=== PATIENT | female | born 1940 | race Caucasian/White ===

== ENCOUNTER → 2018-09-19 | Outpatient (CLI) | payer OTHER ==
[~2018-09-19] MED LIST: ASCO500; ASCO500 PO; ASPI325 PO; ASPI325EC; CITRATE OF MAG296 ML PO; Coenzyme Q10200 M2; DENAVIR; ERGO400 PO; Estrace Vagin42.5 GM VAG; FISH OIL 1,0001 EAC1 PO; HEARTBURN RELI150 MG PO; L-LYSINE1000 MG; L-THEANINE25 GM; LIOT5; LIOT5 PO; LOSA50 PO; METHYLCOBALAMIN; Multiple Vitam1 EAC1; Multivitamin1 EAC1 PO; NAPR220; Nitrostat0.4 MG; OMEG1CAP30; Omeprazole20 M1 PO; PROBIOTIC1 EAC1; Protopic100 G1; Simvastatin20 MG PO
[2018-09-20 11:24] LABS: G. vaginalis (DNA Probe) Negative (NEGATIVE); T. vaginalis (DNA Probe) Negative (NEGATIVE)
[2018-09-20 11:25] LABS: Candida species (DNA Probe) Negative (NEGATIVE)
== END | disposition home or self-care (01) ==
LOC: LAB 12:01 → LAB SHORT 12:01
PROVIDERS: Obstetrics & Gynecology
DX: N76.0 Acute vaginitis (principal)
CPT/HCPCS: 87480; 87510; 87660

== ENCOUNTER → 2018-12-28 | Outpatient (CLI) | payer OTHER ==
[2018-12-28 12:31] LABS: BASOPHILS ABSOLUTE AUTO 0.03 K/mm3 (0.00-0.23); BASOPHILS PERCENT AUTO 0 % (0-2); EOSINOPHILS ABSOLUTE AUTO 0.05 K/mm3 (0.00-0.68); EOSINOPHILS PERCENT AUTO 1 % (0-6); Hematocrit 43.3 % (33.0-51.0); Hemoglobin 14.5 g/dL (11.5-16.0); IMMATURE GRAN ABSOLUTE AUTO 0.02 K/mm3 (0.00-0.10); IMMATURE GRAN PERCENT AUTO 0 % (0-1); LYMPHOCYTES ABSOLUTE AUTO 2.83 K/mm3 (0.84-5.20); LYMPHOCYTES PERCENT AUTO 37 % (21-46); MONOCYTES ABSOLUTE AUTO 0.55 K/mm3 (0.16-1.47); MONOCYTES PERCENT AUTO 7 % (4-13); Mean Corpuscular HGB 31.1 pg (26.0-34.0); Mean Corpuscular HGB Conc 33.5 g/dL (31.5-36.5); Mean Corpuscular Volume 93 fL (80-100); Mean Platelet Volume 10.1 fL (9.1-12.4); NEUTROPHILS ABSOLUTE AUTO 4.13 K/mm3 (1.96-9.15); NEUTROPHILS PERCENT AUTO 54 % (41-73); Platelet Count 240 K/mm3 (150-400); RDW Coefficient Variation 12.6 % (11.7-14.2); RDW Standard Deviation 43.1 fL (35.1-46.3); Red Blood Cell Count 4.66 M/mm3 (3.80-5.20); White Blood Cell Count 7.61 K/mm3 (4.00-11.30)
[2018-12-28 12:42] LABS: Anion Gap 10 mmol/L (6-16); Blood Urea Nitrogen 11 mg/dL (8-24); Bun/Creatinine Ratio 14.3 (12.0-20.0); CO2, Blood 25 mmol/L (21-32); Calcium, Blood 8.5 mg/dL (8.5-10.1); Chloride, Blood 102 mmol/L (98-108); Creatinine, Blood 0.77 mg/dL (0.40-1.00); Glomerular Filtration Rate >60 (60-); Glucose, Blood 85 mg/dL (70-99); Potassium, Blood 3.6 mmol/L (3.5-5.5); Sodium, Blood 137 mmol/L (136-145)
[2018-12-28 12:45] LABS: Troponin I <0.017 ng/mL (0.000-0.040)
== END | disposition home or self-care (01) ==
LOC: LAB SHORT 12:25 → LAB EV 12:25
PROVIDERS: Family Medicine
DX: R07.9 Chest pain, unspecified (principal)
CPT/HCPCS: 80048; 84484; 85025

== ENCOUNTER → 2019-06-20 | Outpatient (CLI) | payer OTHER | END | disposition home or self-care (01) | LOC: LAB 16:30 → LAB SHORT 16:30 | DX: B37.2 Candidiasis of skin and nail (principal) | CPT/HCPCS: 87102 ==

== ENCOUNTER → 2019-11-01 | Outpatient (CLI) | payer OTHER ==
[2019-11-01 14:37] LABS: Candida species (DNA Probe) Negative (NEGATIVE); G. vaginalis (DNA Probe) Negative (NEGATIVE); T. vaginalis (DNA Probe) Negative (NEGATIVE)
== END | disposition home or self-care (01) ==
LOC: LAB SHORT 09:20 → LAB 09:20
PROVIDERS: Obstetrics & Gynecology
DX: N76.0 Acute vaginitis (principal)
CPT/HCPCS: 87480; 87510; 87660

== ENCOUNTER → 2020-03-15 | Outpatient (CLI) | payer OTHER ==
[~2020-03-15] MED LIST changes: +ACYC400 PO; +CBD CREAM; +ERGO400; +FIBER THERAPY625 MG; +FISH OIL 1,2001 EAC7 PO; +LIPOIC ACID25 GM; +MAGCIT300; +MULTI-VITAMIN1 EAC2 PO; +OMEP20ER PO; +Voltaren100 GM
[2020-03-18 07:04] LABS: Stool Occult Bld Immuno 1 Negative (NEGATIVE); Stool Occult Bld Immuno 2 Negative (NEGATIVE)
[2020-03-18 15:11] LABS: FATS, NEUTRAL Normal (.); FATS, TOTAL Normal (.)
== END | disposition home or self-care (01) ==
LOC: LAB 07:00 → LAB SHORT 07:00 → LAB FUT 03-14 10:00
PROVIDERS: Internal Medicine Gastroenterology
DX: R10.84 Generalized abdominal pain (principal); R19.4 Change in bowel habit
CPT/HCPCS: 82705; G0328

== ENCOUNTER → 2020-07-03 | Outpatient (CLI) | payer OTHER ==
[2020-07-03 16:09] LABS: BASOPHILS ABSOLUTE AUTO 0.04 K/mm3 (0.00-0.23); BASOPHILS PERCENT AUTO 1 % (0-2); EOSINOPHILS ABSOLUTE AUTO 0.04 K/mm3 (0.00-0.68); EOSINOPHILS PERCENT AUTO 1 % (0-6); Hematocrit 43.3 % (33.0-51.0); Hemoglobin 14.8 g/dL (11.5-16.0); IMMATURE GRAN ABSOLUTE AUTO 0.02 K/mm3 (0.00-0.10); IMMATURE GRAN PERCENT AUTO 0 % (0-1); LYMPHOCYTES ABSOLUTE AUTO 2.61 K/mm3 (0.84-5.20); LYMPHOCYTES PERCENT AUTO 37 % (21-46); MONOCYTES ABSOLUTE AUTO 0.45 K/mm3 (0.16-1.47); MONOCYTES PERCENT AUTO 6 % (4-13); Mean Corpuscular HGB Conc 34.2 g/dL (31.5-36.5); Mean Corpuscular Volume 94 fL (80-100); Mean Platelet Volume 9.8 fL (9.1-12.4); NEUTROPHILS ABSOLUTE AUTO 3.97 K/mm3 (1.96-9.15); NEUTROPHILS PERCENT AUTO 56 % (41-73); Platelet Count 259 K/mm3 (150-400); RDW Coefficient Variation 12.4 % (11.7-14.2); RDW Standard Deviation 42.6 fL (35.1-46.3); Red Blood Cell Count 4.63 M/mm3 (3.80-5.20); White Blood Cell Count 7.13 K/mm3 (4.00-11.30)
[2020-07-03 16:22] LABS: Alanine Aminotransfer (ALT/SGP 30 U/L (12-78); Albumin, Blood 4.2 g/dL (3.4-5.0); Albumin/Globulin Ratio 1.2 (0.8-1.8); Alk Phos 102 U/L (40-126); Anion Gap 9 mmol/L (6-16); Aspartate Aminotrans (AST/SGOT 23 U/L (12-37); Bilirubin, Total 0.4 mg/dL (0.1-1.0); Blood Urea Nitrogen 14 mg/dL (8-24); Bun/Creatinine Ratio 17.9 (12.0-20.0); CO2, Blood 28 mmol/L (21-32); Calcium, Blood 9.4 mg/dL (8.5-10.1); Chloride, Blood 98 mmol/L (98-108); Creatinine, Blood 0.78 mg/dL (0.40-1.00); Globulin, Blood 3.6 g/dL (2.2-4.0); Glomerular Filtration Rate >60 (60-); Glucose, Blood 87 mg/dL (70-99); Potassium, Blood 3.7 mmol/L (3.5-5.5); Sodium, Blood 135 mmol/L (136-145); Total Protein, Blood 7.8 g/dL (6.4-8.2)
[2020-07-03 16:32] LABS: Troponin I <0.017 ng/mL (0.000-0.040)
== END ==
LOC: LAB EV 16:03 → LAB SHORT 16:03
PROVIDERS: Physician Assistant
DX: E03.9 Hypothyroidism, unspecified (principal); R07.89 Other chest pain
CPT/HCPCS: 80053; 84443; 84484; 85025; 85379

== ENCOUNTER → 2020-10-07 | Outpatient (CLI) | payer OTHER ==
[~2020-10-07] MED LIST changes: +CEFD300 PO; -ERGO400; +GABA100 PO; +OXYB5 PO; +PANT40 PO; +THERA-D2000 UNIT PO
[2020-10-07 12:23] LABS: BASOPHILS ABSOLUTE AUTO 0.02 K/mm3 (0.00-0.23); BASOPHILS PERCENT AUTO 0 % (0-2); EOSINOPHILS ABSOLUTE AUTO 0.03 K/mm3 (0.00-0.68); EOSINOPHILS PERCENT AUTO 1 % (0-6); Hematocrit 45.8 % (33.0-51.0); Hemoglobin 15.3 g/dL (11.5-16.0); IMMATURE GRAN ABSOLUTE AUTO 0.02 K/mm3 (0.00-0.10); IMMATURE GRAN PERCENT AUTO 0 % (0-1); LYMPHOCYTES PERCENT AUTO 39 % (21-46); MONOCYTES ABSOLUTE AUTO 0.39 K/mm3 (0.16-1.47); MONOCYTES PERCENT AUTO 6 % (4-13); Mean Corpuscular HGB 31.6 pg (26.0-34.0); Mean Corpuscular HGB Conc 33.4 g/dL (31.5-36.5); Mean Corpuscular Volume 95 fL (80-100); Mean Platelet Volume 9.5 fL (9.1-12.4); NEUTROPHILS ABSOLUTE AUTO 3.38 K/mm3 (1.96-9.15); NEUTROPHILS PERCENT AUTO 53 % (41-73); Platelet Count 253 K/mm3 (150-400); RDW Coefficient Variation 12.2 % (11.7-14.2); RDW Standard Deviation 42.9 fL (35.1-46.3); Red Blood Cell Count 4.84 M/mm3 (3.80-5.20); White Blood Cell Count 6.34 K/mm3 (4.00-11.30)
[2020-10-07 12:34] LABS: Alanine Aminotransfer (ALT/SGP 33 U/L (12-78); Albumin/Globulin Ratio 1.1 (0.8-1.8); Alk Phos 116 U/L (40-126); Anion Gap 8 mmol/L (6-16); Aspartate Aminotrans (AST/SGOT 23 U/L (12-37); Bilirubin, Total 0.6 mg/dL (0.1-1.0); Blood Urea Nitrogen 9 mg/dL (8-24); Bun/Creatinine Ratio 10.1 (12.0-20.0); CO2, Blood 28 mmol/L (21-32); Calcium, Blood 9.5 mg/dL (8.5-10.1); Chloride, Blood 99 mmol/L (98-108); Creatinine, Blood 0.89 mg/dL (0.40-1.00); Globulin, Blood 3.6 g/dL (2.2-4.0); Glomerular Filtration Rate >60 (60-); Glucose, Blood 98 mg/dL (70-99); Magnesium, Blood 2.4 mg/dL (1.6-2.4); Potassium, Blood 3.8 mmol/L (3.5-5.5); Sodium, Blood 135 mmol/L (136-145); Total Protein, Blood 7.6 g/dL (6.4-8.2)
== END | disposition home or self-care (01) ==
LOC: LAB 12:19 → LAB SHORT 12:19 → PLD 12:19
PROVIDERS: Physician Assistant
DX: F44.89 Other dissociative and conversion disorders (principal); N39.0 Urinary tract infection, site not specified
CPT/HCPCS: 80053; 83735; 85025; 87086

== ENCOUNTER 2020-10-18 12:47 | Observation (INO) | payer OTHER ==
[~2020-10-18] VITALS: Ht 154.9 cm; Wt 47.6 kg
[~2020-10-18 12:47] MED LIST changes: -CEFD300 PO; -GABA100 PO; -OXYB5 PO; -PANT40 PO
[2020-10-18 13:20] LABS: BASOPHILS ABSOLUTE AUTO 0.03 K/mm3 (0.00-0.23); BASOPHILS PERCENT AUTO 0 % (0-2); EOSINOPHILS ABSOLUTE AUTO 0.04 K/mm3 (0.00-0.68); EOSINOPHILS PERCENT AUTO 1 % (0-6); Hematocrit 43.3 % (33.0-51.0); Hemoglobin 14.6 g/dL (11.5-16.0); IMMATURE GRAN ABSOLUTE AUTO 0.02 K/mm3 (0.00-0.10); IMMATURE GRAN PERCENT AUTO 0 % (0-1); LYMPHOCYTES ABSOLUTE AUTO 2.87 K/mm3 (0.84-5.20); LYMPHOCYTES PERCENT AUTO 41 % (21-46); MONOCYTES ABSOLUTE AUTO 0.37 K/mm3 (0.16-1.47); MONOCYTES PERCENT AUTO 5 % (4-13); Mean Corpuscular HGB 31.7 pg (26.0-34.0); Mean Corpuscular HGB Conc 33.7 g/dL (31.5-36.5); Mean Corpuscular Volume 94 fL (80-100); Mean Platelet Volume 9.7 fL (9.1-12.4); NEUTROPHILS ABSOLUTE AUTO 3.69 K/mm3 (1.96-9.15); NEUTROPHILS PERCENT AUTO 53 % (41-73); Platelet Count 243 K/mm3 (150-400); RDW Coefficient Variation 12.1 % (11.7-14.2); RDW Standard Deviation 42.1 fL (35.1-46.3); White Blood Cell Count 7.02 K/mm3 (4.00-11.30)
[2020-10-18] MEDS ORDERED: CEFD300 PO (13:21)
[2020-10-18 13:34] LABS: Alanine Aminotransfer (ALT/SGP 33 U/L (12-78); Albumin, Blood 3.7 g/dL (3.4-5.0); Albumin/Globulin Ratio 1.1 (0.8-1.8); Alk Phos 110 U/L (50-136); Anion Gap 6 mmol/L (6-16); Aspartate Aminotrans (AST/SGOT 21 U/L (12-37); Bilirubin, Total 0.5 mg/dL (0.1-1.0); Blood Urea Nitrogen 11 mg/dL (8-24); Bun/Creatinine Ratio 12.9 (12.0-20.0); CO2, Blood 27 mmol/L (21-32); Chloride, Blood 106 mmol/L (98-108); Creatinine, Blood 0.85 mg/dL (0.40-1.00); Globulin, Blood 3.3 g/dL (2.2-4.0); Glomerular Filtration Rate >60 (60-); Glucose, Blood 99 mg/dL (70-99); International Normalized Ratio 0.93; Potassium, Blood 3.6 mmol/L (3.5-5.5); Sodium, Blood 139 mmol/L (136-145)
[2020-10-18 14:29] LABS: Source, Urine Clean Catch
[2020-10-18 14:32] LABS: Appearance, Urine Clear (Clear); Bilirubin, Urine Neg (Neg); Blood, Urine 1+ (Neg); Color, Urine Yellow (P-Yellow); Glucose Qualitative, Urine Neg (Neg); Ketones, Urine Neg (Neg); Leukocyte Esterase, Urine Neg (Neg); Nitrite, Urine Neg (Neg); Protein, Urine Neg (Neg); Specific Gravity, Urine 1.005 (1.003-1.022); Urobilinogen, Urine NORM (Normal)
[2020-10-18 14:48] LABS: Bacteria Rare /hpf; Squamous Epithelial Cells Few /hpf (Few); White Blood Cells, Urine 0-2 /hpf (0-5)
[2020-10-18] MEDS ORDERED: GABA100 PO (17:56)
--- NOTE | 2020-10-19 04:46 | NUR ---
SHIFT SUMMARY: PT IS ALERT AND ORIENTED WITH VERY MILD EXPRESSIVE APHASIA. PT IS A ONE PERSON ASSIST. PT IS CALM AND COOPERATIVE WITH CARE. PT CALLS APPROPRIATELY. PT REPORTED HEADACHE EARLY IN THE SHIFT, GAVE PRN TYLENOL. PT DENIES NAUSEA, VOMITING, AND SOB. PT SLEPT INTERMITTENTLY THROUGHOUT THE NIGHT. NO ACUTE CHANGES OR COMPLICATIONS THIS SHIFT. BED IN LOW POSITION, CALL LIGHT WITHIN REACH. WILL CONTINUE TO MONITOR.
[2020-10-19 05:15] LABS: BASOPHILS ABSOLUTE AUTO 0.01 K/mm3 (0.00-0.23); BASOPHILS PERCENT AUTO 0 % (0-2); EOSINOPHILS PERCENT AUTO 0 % (0-6); Hematocrit 41.6 % (33.0-51.0); Hemoglobin 14.1 g/dL (11.5-16.0); IMMATURE GRAN ABSOLUTE AUTO 0.03 K/mm3 (0.00-0.10); IMMATURE GRAN PERCENT AUTO 0 % (0-1); LYMPHOCYTES ABSOLUTE AUTO 2.36 K/mm3 (0.84-5.20); LYMPHOCYTES PERCENT AUTO 24 % (21-46); MONOCYTES ABSOLUTE AUTO 0.22 K/mm3 (0.16-1.47); MONOCYTES PERCENT AUTO 2 % (4-13); Mean Corpuscular HGB 31.8 pg (26.0-34.0); Mean Corpuscular HGB Conc 33.9 g/dL (31.5-36.5); Mean Corpuscular Volume 94 fL (80-100); NEUTROPHILS ABSOLUTE AUTO 7.36 K/mm3 (1.96-9.15); NEUTROPHILS PERCENT AUTO 74 % (41-73); Platelet Count 251 K/mm3 (150-400); RDW Coefficient Variation 11.9 % (11.7-14.2); RDW Standard Deviation 41.5 fL (35.1-46.3); Red Blood Cell Count 4.44 M/mm3 (3.80-5.20); White Blood Cell Count 9.98 K/mm3 (4.00-11.30)
[2020-10-19 06:04] LABS: Albumin, Blood 3.3 g/dL (3.4-5.0); Anion Gap 8 mmol/L (6-16); Blood Urea Nitrogen 13 mg/dL (8-24); Bun/Creatinine Ratio 17.5 (12.0-20.0); CO2, Blood 23 mmol/L (21-32); Calcium, Blood 9.1 mg/dL (8.5-10.1); Chloride, Blood 108 mmol/L (98-108); Cholesterol 249 mg/dL (50-200); Creatinine, Blood 0.74 mg/dL (0.40-1.00); Glomerular Filtration Rate >60 (60-); Glucose, Blood 124 mg/dL (70-99); HDL Cholesterol 82 mg/dL (>39); LDL/HDL RATIO 1.9; Low Density Lipoprotein Chol 158 mg/dL (0-110); Phosphorus, Blood 4.1 mg/dL (2.5-4.9); Potassium, Blood 4.1 mmol/L (3.5-5.5); Sodium, Blood 139 mmol/L (136-145); Thyroid Stimulating Hormone 0.607 uIU/mL (0.360-4.800); Triglycerides 47 mg/dL (30-160); Very Low Density Lipoprot Chol 9 mg/dL (6-32)
[2020-10-19] MEDS ORDERED: ASPI325 PO (09:32)
[2020-10-19] MEDS ORDERED: PANT40 PO (09:33)
[2020-10-19] MEDS ORDERED: OXYB5 PO (09:33)
--- NOTE | 2020-10-19 11:59 | NUR ---
PT DISCHARGED FROM THE UNIT. IV REMOVED. DISCHARGE INSTRUCTIONS REVIEWED. MEDICATIONS FAXED TO PHARMACY. PT LEFT UNIT VIA WHEEL CHAIR. DAUGHTER WILL DRIVE HER HOME.
== END 2020-10-19 11:44 | disposition home or self-care (01) ==
LOC: ER 12:47 → MEDS 15:48
PROVIDERS: Physician Assistant; ADMIT Internal Medicine Gastroenterology
DX: R29.818 Other symptoms and signs involving the nervous system (principal); R47.01 Aphasia; H53.8 Other visual disturbances; R47.9 Unspecified speech disturbances; H53.2 Diplopia; I10 Essential (primary) hypertension; G47.9 Sleep disorder, unspecified; I65.23 Occlusion and stenosis of bilateral carotid arteries; Z87.19 Personal history of other diseases of the digestive system; Z88.2 Allergy status to sulfonamides; Z88.8 Allergy status to other drugs, medicaments and biological substances
CPT/HCPCS: 36415; 36416; 70450; 70496; 70498; 80053; 80061; 80069; 81001; 82947; 84443; 85025; 85610; 85730; 93005; 93010; 96374; 96375; 99285-25; A9270; G0378; J1200; J2930; Q9967

== ENCOUNTER → 2021-01-09 | Outpatient (CLI) | payer OTHER ==
[~2021-01-09] MED LIST changes: +CEFD300 PO; +GABA100 PO; +OXYB5 PO; +PANT40 PO
[2021-01-10 09:00] LABS: Candida species (DNA Probe) Negative (NEGATIVE); G. vaginalis (DNA Probe) Negative (NEGATIVE); T. vaginalis (DNA Probe) Negative (NEGATIVE)
== END | disposition home or self-care (01) ==
LOC: LAB SHORT 10:35 → LAB 10:35
PROVIDERS: Family Medicine
DX: N95.2 Postmenopausal atrophic vaginitis (principal)
CPT/HCPCS: 87480; 87510; 87660

== ENCOUNTER → 2021-09-29 | Outpatient (CLI) | payer OTHER | END | disposition home or self-care (01) | LOC: LAB SHORT 11:22 | DX: D04.72 Carcinoma in situ of skin of left lower limb, including hip (principal) | CPT/HCPCS: 88305 ==

== ENCOUNTER 2021-11-20 13:27 | Day surgery (SDC) | payer OTHER ==
[~2021-11-20] VITALS: Ht 182.9 cm; Wt 45.6 kg
[2021-11-20] MEDS ORDERED: OMEP20ER (14:09)
--- NOTE | 2021-11-20 14:20 | NUR ---
11/20/21 1420 Erum De La Torre 1 TRY RIGHT UPPER ARM BLEW
== END 2021-11-20 16:13 | disposition home or self-care (01) ==
LOC: ORSCSDS 13:27
PROVIDERS: Internal Medicine Gastroenterology
PROC: 0DJD8ZZ Inspection of Lower Intestinal Tract, Via Natural or Artificial Opening Endoscopic (ICD-10-PCS; principal; 2021-11-20 14:45)
DX: R10.9 Unspecified abdominal pain (principal); K62.89 Other specified diseases of anus and rectum; K57.30 Diverticulosis of large intestine without perforation or abscess without bleeding; I10 Essential (primary) hypertension; K64.8 Other hemorrhoids; Z79.899 Other long term (current) drug therapy
CPT/HCPCS: J0330; J0461; J2405; J2704; J7120

== ENCOUNTER → 2022-01-15 | Outpatient (CLI) | payer OTHER ==
[~2022-01-15] MED LIST changes: +OMEP20ER
== END | disposition home or self-care (01) ==
LOC: LAB SHORT 07:54 → LAB 07:54
DX: N39.0 Urinary tract infection, site not specified (principal)
CPT/HCPCS: 87077; 87086; 87186

== ENCOUNTER → 2022-02-23 | Outpatient (CLI) | payer OTHER ==
[2022-02-23 14:51] LABS: Source, Urine Clean Catch
[2022-02-23 18:13] LABS: Appearance, Urine Clear (Clear); Bilirubin, Urine Neg (Neg); Blood, Urine 2+ (Neg); Glucose Qualitative, Urine Neg (Neg); Ketones, Urine Neg (Neg); Leukocyte Esterase, Urine 1+ (Neg); Nitrite, Urine Neg (Neg); Protein, Urine Neg (Neg); Urobilinogen, Urine NORM (Normal)
[2022-02-23 18:31] LABS: Color, Urine Pale Yellow (P-Yellow)
[2022-02-23 18:32] LABS: Bacteria Few /hpf; Squamous Epithelial Cells Few /hpf (Few); White Blood Cells, Urine 0-2 /hpf (0-5)
== END | disposition home or self-care (01) ==
LOC: LAB 14:48 → LAB SHORT 14:48
PROVIDERS: Family Medicine
DX: R30.9 Painful micturition, unspecified (principal)
CPT/HCPCS: 81001; 87086

== ENCOUNTER → 2022-03-02 | Outpatient (CLI) | payer OTHER ==
[2022-03-02 14:20] LABS: Candida species (DNA Probe) Negative (NEGATIVE); G. vaginalis (DNA Probe) Negative (NEGATIVE); T. vaginalis (DNA Probe) Negative (NEGATIVE)
== END | disposition home or self-care (01) ==
LOC: LAB 09:43 → LAB SHORT 09:43
PROVIDERS: Family Medicine
DX: N89.8 Other specified noninflammatory disorders of vagina (principal)
CPT/HCPCS: 87480; 87510; 87660

== ENCOUNTER → 2022-03-24 | Outpatient (CLI) | payer OTHER | END | disposition home or self-care (01) | LOC: LAB SHORT 11:02 → LAB 11:02 | DX: N39.0 Urinary tract infection, site not specified (principal) | CPT/HCPCS: 87086 ==

== ENCOUNTER 2022-06-11 10:06 | Emergency (ER) | payer OTHER ==
[~2022-06-11] VITALS: Ht 152.4 cm; Wt 54.4 kg
[2022-06-11 11:04] LABS: BASOPHILS ABSOLUTE AUTO 0.04 K/mm3 (0.00-0.23); BASOPHILS PERCENT AUTO 1 % (0-2); EOSINOPHILS ABSOLUTE AUTO 0.06 K/mm3 (0.00-0.68); EOSINOPHILS PERCENT AUTO 1 % (0-6); Hematocrit 44.7 % (33.0-51.0); Hemoglobin 14.7 g/dL (11.5-16.0); IMMATURE GRAN ABSOLUTE AUTO 0.01 K/mm3 (0.00-0.10); IMMATURE GRAN PERCENT AUTO 0 % (0-1); LYMPHOCYTES ABSOLUTE AUTO 2.94 K/mm3 (0.84-5.20); LYMPHOCYTES PERCENT AUTO 45 % (21-46); MONOCYTES ABSOLUTE AUTO 0.33 K/mm3 (0.16-1.47); MONOCYTES PERCENT AUTO 5 % (4-13); Mean Corpuscular HGB 30.9 pg (26.0-34.0); Mean Corpuscular HGB Conc 32.9 g/dL (31.5-36.5); Mean Corpuscular Volume 94 fL (80-100); Mean Platelet Volume 9.9 fL (9.1-12.4); NEUTROPHILS ABSOLUTE AUTO 3.19 K/mm3 (1.96-9.15); NEUTROPHILS PERCENT AUTO 49 % (41-73); Platelet Count 226 K/mm3 (150-400); RDW Coefficient Variation 12.6 % (11.7-14.2); RDW Standard Deviation 43.7 fL (35.1-46.3); Red Blood Cell Count 4.76 M/mm3 (3.80-5.20); White Blood Cell Count 6.57 K/mm3 (4.00-11.30)
[2022-06-11 11:29] LABS: Albumin, Blood 3.9 g/dL (3.4-5.0); Albumin/Globulin Ratio 1.1 (0.8-1.8); Bilirubin, Total 0.6 mg/dL (0.1-1.0); Bun/Creatinine Ratio 18.9 (12.0-20.0); Calcium, Blood 9.1 mg/dL (8.5-10.1); Creatinine, Blood 0.63 mg/dL (0.40-1.00); Globulin, Blood 3.5 g/dL (2.2-4.0); Total Protein, Blood 7.4 g/dL (6.4-8.2)
== END 2022-06-11 12:08 | disposition home or self-care (01) ==
LOC: ER 10:06
PROVIDERS: Physician Assistant
DX: R10.13 Epigastric pain (principal); K22.70 Barrett's esophagus without dysplasia; Z91.048 Other nonmedicinal substance allergy status; Z88.2 Allergy status to sulfonamides; Z79.899 Other long term (current) drug therapy; Z88.8 Allergy status to other drugs, medicaments and biological substances
CPT/HCPCS: 36415; 71045; 80053; 83690; 84484; 85025; 93005; 93010; 96374; 99284-25; A9270; J2405

== ENCOUNTER 2022-06-17 07:16 | Day surgery (SDC) | payer OTHER ==
[~2022-06-17] VITALS: Ht 152.4 cm; Wt 46.0 kg
[2022-06-17] MEDS ORDERED: TIMO.25OPS BOTHEYES (07:35)
== END 2022-06-17 09:02 | disposition home or self-care (01) ==
LOC: ORSCSDS 07:16
PROVIDERS: Ophthalmology
PROC: 08DK3ZZ Extraction of Left Lens, Percutaneous Approach (ICD-10-PCS; principal; 2022-06-17 08:30)
DX: H25.12 Age-related nuclear cataract, left eye (principal); I10 Essential (primary) hypertension; G47.33 Obstructive sleep apnea (adult) (pediatric); E78.5 Hyperlipidemia, unspecified; H35.30 Unspecified macular degeneration; Z79.899 Other long term (current) drug therapy
CPT/HCPCS: J2001; J2250; J3010; J3301; J7040; V2632

== ENCOUNTER 2022-07-01 07:10 | Day surgery (SDC) | payer OTHER ==
[~2022-07-01] VITALS: Ht 152.4 cm; Wt 46.4 kg
[~2022-07-01 07:10] MED LIST changes: +TIMO.25OPS BOTHEYES
--- NOTE | 2022-07-01 08:04 | NUR ---
07/01/22 0804 Rachana Maki 0750 PLEDGET AT 1513
== END 2022-07-01 09:17 | disposition home or self-care (01) ==
LOC: ORSCSDS 07:10
PROVIDERS: Ophthalmology
PROC: 08DJ3ZZ Extraction of Right Lens, Percutaneous Approach (ICD-10-PCS; principal; 2022-07-01 08:30)
DX: H25.11 Age-related nuclear cataract, right eye (principal); Z96.1 Presence of intraocular lens; I10 Essential (primary) hypertension; E78.5 Hyperlipidemia, unspecified; E03.9 Hypothyroidism, unspecified; K22.70 Barrett's esophagus without dysplasia; H35.30 Unspecified macular degeneration; H35.81 Retinal edema; G47.30 Sleep apnea, unspecified; Z79.899 Other long term (current) drug therapy
CPT/HCPCS: J2001; J2250; J3010; J3301; J7040; V2632

== ENCOUNTER → 2022-08-04 | Outpatient (CLI) | payer OTHER | END | disposition home or self-care (01) | LOC: LAB 11:44 → LAB SHORT 11:44 | DX: R30.9 Painful micturition, unspecified (principal) | CPT/HCPCS: 87086 ==

== ENCOUNTER 2022-11-10 09:45 | Day surgery (SDC) | payer OTHER ==
[~2022-11-10] VITALS: Ht 152.4 cm; Wt 46.3 kg
[~2022-11-10 09:45] MED LIST changes: +DICLOFENAC SOD2.5 M2 BOTHEYES
[2022-11-10] MEDS ORDERED: LIOT5 (10:12)
== END 2022-11-10 12:00 | disposition home or self-care (01) ==
LOC: ORSCSDS 09:45
PROVIDERS: Internal Medicine Gastroenterology
PROC: 0D758ZZ Dilation of Esophagus, Via Natural or Artificial Opening Endoscopic (ICD-10-PCS; principal; 2022-11-10 11:00)
PROC: 0DB58ZX Excision of Esophagus, Via Natural or Artificial Opening Endoscopic, Diagnostic (ICD-10-PCS; principal; 2022-11-10 11:00)
DX: R10.13 Epigastric pain (principal); R13.14 Dysphagia, pharyngoesophageal phase; Z79.899 Other long term (current) drug therapy
CPT/HCPCS: 88305; J2704; J7120

== ENCOUNTER → 2023-09-09 | Outpatient (CLI) | payer OTHER ==
[2023-09-09 20:13] LABS: Free Thyroxine 0.82 ng/dL (0.70-1.60); Percent Saturation 21.7 % (15.0-50.0); Thyroid Stimulating Hormone 3.41 uIU/mL (0.360-4.800); Triiodothyronine, Free 2.55 pg/mL (2.18-3.98)
[2023-09-12 13:09] LABS: A/G RATIO 2.3 (1.2-2.2); BILIRUBIN, TOTAL 0.3 mg/dL (0.0-1.2); CALCIUM, SERUM 9.1 mg/dL (8.7-10.3); CREATININE, SERUM 0.65 mg/dL (0.57-1.00); GLOBULIN, TOTAL 1.9 g/dL (1.5-4.5); POTASSIUM, SERUM 3.9 mmol/L (3.5-5.2); PROTEIN, TOTAL, SERUM 6.2 g/dL (6.0-8.5)
== END | disposition home or self-care (01) ==
LOC: LAB 17:49 → LAB SHORT 17:49
PROVIDERS: Internal Medicine
DX: E61.1 Iron deficiency (principal); E03.9 Hypothyroidism, unspecified; I10 Essential (primary) hypertension
CPT/HCPCS: 80053; 82728; 83540; 83550; 84439; 84443; 84481

== ENCOUNTER → 2024-02-22 | Outpatient (CLI) | payer OTHER ==
[2024-02-22 14:45] LABS: BASOPHILS ABSOLUTE AUTO 0.02 K/mm3 (0.00-0.23); BASOPHILS PERCENT AUTO 0 % (0-2); EOSINOPHILS ABSOLUTE AUTO 0.02 K/mm3 (0.00-0.68); EOSINOPHILS PERCENT AUTO 0 % (0-6); Hematocrit 44.4 % (33.0-51.0); Hemoglobin 15.1 g/dL (11.5-16.0); IMMATURE GRAN ABSOLUTE AUTO 0.01 K/mm3 (0.00-0.10); IMMATURE GRAN PERCENT AUTO 0 % (0-1); LYMPHOCYTES ABSOLUTE AUTO 3.57 K/mm3 (0.84-5.20); LYMPHOCYTES PERCENT AUTO 51 % (21-46); MONOCYTES ABSOLUTE AUTO 0.33 K/mm3 (0.16-1.47); MONOCYTES PERCENT AUTO 5 % (4-13); Mean Corpuscular HGB 32.3 pg (26.0-34.0); Mean Corpuscular Volume 95 fL (80-100); Mean Platelet Volume 10.8 fL (9.1-12.4); NEUTROPHILS ABSOLUTE AUTO 3.05 K/mm3 (1.96-9.15); NEUTROPHILS PERCENT AUTO 44 % (41-73); Platelet Count 233 K/mm3 (150-400); RDW Coefficient Variation 13.2 % (11.7-14.2); RDW Standard Deviation 46.1 fL (35.1-46.3); Red Blood Cell Count 4.67 M/mm3 (3.80-5.20)
[2024-02-22 14:50] LABS: Albumin, Blood 4.1 g/dL (3.4-5.0); Albumin/Globulin Ratio 1.4 (0.8-1.8); Bilirubin, Total 0.5 mg/dL (0.1-1.0); Bun/Creatinine Ratio 12.4 (12.0-20.0); Creatinine, Blood 0.72 mg/dL (0.40-1.00); Globulin, Blood 2.9 g/dL (2.2-4.0); Potassium, Blood 4.1 mmol/L (3.5-5.5)
== END | disposition home or self-care (01) ==
LOC: LAB SHORT 13:46 → LAB 13:46
PROVIDERS: Internal Medicine
DX: R10.13 Epigastric pain (principal)
CPT/HCPCS: 80053; 83690; 85025

== ENCOUNTER 2024-04-26 11:02 | Day surgery (SDC) | payer OTHER ==
[~2024-04-26] VITALS: Ht 152.4 cm; Wt 44.6 kg
[~2024-04-26 11:02] MED LIST changes: +Lactated Ringer's 1,000 ML IV ONE
[2024-04-26] MEDS ORDERED: Lactated Ringer's 1,000 ML IV ONE (11:52)
[2024-04-26] MEDS ORDERED: Midazolam HCl 1MG / ML 2ML Vial ONE (11:57)
[2024-04-26] MEDS ORDERED: propofoL 20 ML IV ONE (11:57)
[2024-04-26] MEDS ORDERED: FentaNYL Citrate 50 MCG/ML 2 ML Injection ONE (11:57)
[2024-04-26] MEDS ORDERED: VALA500 PO (12:01)
[2024-04-26] MEDS ORDERED: OMEP20ER PO (12:01)
--- NOTE | 2024-04-26 12:07 | NUR ---
04/26/24 1207 SHANA WILD IN TO SEE PATIENT AND PRE INJECT WITH LOCAL. PT INJECTED IN LEFT HAND BOTH AT CARPAL AND FOR TRIGGER FINGER (CONSENT AMENDED) 10CC (1CC SODIUM BICARBONATE, 9CC 1% LIDOCAINE W/EPINEPHRINE 1:100,000)
--- NOTE | 2024-04-26 12:53 | NUR ---
04/26/24 1253 Johnnie Angela PT STATES SBP 140'S AT HOME. SHE FEELS MORE RELAXED NOW THAN BEFORE PROCEDURE.
[2024-04-26 12:54] VITALS: BP 142/77
== END 2024-04-26 13:21 | disposition home or self-care (01) ==
LOC: ORSCSDS 11:02
PROVIDERS: Orthopaedic Surgery
PROC: 0LN Tendons, Release (ICD-10-PCS; principal; 2024-04-26 12:30)
PROC: 01N54ZZ Release Median Nerve, Percutaneous Endoscopic Approach (ICD-10-PCS; principal; 2024-04-26 12:30)
DX: G56.02 Carpal tunnel syndrome, left upper limb (principal); M65.342 Trigger finger, left ring finger; M77.12 Lateral epicondylitis, left elbow; I10 Essential (primary) hypertension; K21.9 Gastro-esophageal reflux disease without esophagitis; E03.9 Hypothyroidism, unspecified; E78.5 Hyperlipidemia, unspecified; Z79.899 Other long term (current) drug therapy
CPT/HCPCS: J2250; J2704; J3010; J7120

== ENCOUNTER 2024-06-02 16:23 | Emergency (ER) | payer OTHER ==
[~2024-06-02] VITALS: Ht 152.4 cm; Wt 46.3 kg
[~2024-06-02 16:23] MED LIST changes: -Lactated Ringer's 1,000 ML IV ONE; +VALA500 PO
[2024-06-02 17:30] LABS: BASOPHILS ABSOLUTE AUTO 0.04 K/mm3 (0.00-0.23); BASOPHILS PERCENT AUTO 1 % (0-2); EOSINOPHILS ABSOLUTE AUTO 0.06 K/mm3 (0.00-0.68); EOSINOPHILS PERCENT AUTO 1 % (0-6); Hematocrit 42.6 % (33.0-51.0); Hemoglobin 14.5 g/dL (11.5-16.0); IMMATURE GRAN ABSOLUTE AUTO 0.03 K/mm3 (0.00-0.10); IMMATURE GRAN PERCENT AUTO 0 % (0-1); LYMPHOCYTES ABSOLUTE AUTO 4.83 K/mm3 (0.84-5.20); LYMPHOCYTES PERCENT AUTO 58 % (21-46); MONOCYTES ABSOLUTE AUTO 0.37 K/mm3 (0.16-1.47); MONOCYTES PERCENT AUTO 4 % (4-13); Mean Corpuscular Volume 97 fL (80-100); Mean Platelet Volume 9.3 fL (9.1-12.4); NEUTROPHILS ABSOLUTE AUTO 3.03 K/mm3 (1.96-9.15); NEUTROPHILS PERCENT AUTO 36 % (41-73); Platelet Count 227 K/mm3 (150-400); RDW Coefficient Variation 12.6 % (11.7-14.2); RDW Standard Deviation 45.5 fL (35.1-46.3); Red Blood Cell Count 4.39 M/mm3 (3.80-5.20); White Blood Cell Count 8.36 K/mm3 (4.00-11.30)
[2024-06-02 17:48] LABS: Albumin, Blood 3.6 g/dL (3.4-5.0); Bilirubin, Total 0.3 mg/dL (0.1-1.0); Bun/Creatinine Ratio 19.5 (12.0-20.0); Calcium, Blood 9.1 mg/dL (8.5-10.1); Creatinine, Blood 0.67 mg/dL (0.40-1.00); Globulin, Blood 3.5 g/dL (2.2-4.0); Total Protein, Blood 7.1 g/dL (6.4-8.2)
[2024-06-02 18:31] LABS: Source, Urine Clean Catch
[2024-06-02 18:34] LABS: Appearance, Urine Clear (Clear); Bilirubin, Urine Neg (Neg); Blood, Urine 2+ (Neg); Glucose Qualitative, Urine Neg (Neg); Ketones, Urine Neg (Neg); Leukocyte Esterase, Urine Neg (Neg); Nitrite, Urine Neg (Neg); Protein, Urine Neg (Neg); Specific Gravity, Urine 1.015 (1.003-1.022); Urobilinogen, Urine NORM (Normal)
[2024-06-02 18:36] LABS: Color, Urine Pale Yellow (P-Yellow)
[2024-06-02 18:41] LABS: Bacteria Rare /hpf; Red Blood Cells, Urine 0-2 /hpf (0-2); Squamous Epithelial Cells Rare /hpf (Few); White Blood Cells, Urine 0-2 /hpf (0-5)
[2024-06-02] MEDS ORDERED: MethylPREDNISolone Sod Succ 125 MG Vial IV ONE (19:10)
[2024-06-02] MEDS ORDERED: DiphenhydrAMINE HCl 50 MG/ML 1ML Vial IV ONE (19:10)
[2024-06-03] VITALS: BP 162/87
[2024-06-03] MEDS ORDERED: DICY20 PO (00:11)
== END 2024-06-03 00:35 | disposition home or self-care (01) ==
LOC: ER 16:23
PROVIDERS: Student in an Organized Health Care Education/Training Program
DX: K59.00 Constipation, unspecified (principal); Z88.8 Allergy status to other drugs, medicaments and biological substances; Z88.2 Allergy status to sulfonamides; Z79.899 Other long term (current) drug therapy; I10 Essential (primary) hypertension; K21.9 Gastro-esophageal reflux disease without esophagitis
CPT/HCPCS: 74177; 80053; 81001; 83690; 85025; 96374-59; 96375; 99284-25; J1200; J2919; Q9967

== ENCOUNTER 2025-05-15 06:47 | Observation (INO) | payer OTHER ==
[~2025-05-15] VITALS: Ht 152.4 cm; Wt 47.1 kg
[~2025-05-15 06:47] MED LIST changes: +DICY20 PO
[2025-05-15 08:05] LABS: BASOPHILS ABSOLUTE AUTO 0.02 K/mm3 (0.00-0.23); BASOPHILS PERCENT AUTO 0 % (0-2); EOSINOPHILS ABSOLUTE AUTO 0.00 K/mm3 (0.00-0.68); EOSINOPHILS PERCENT AUTO 0 % (0-6); Hematocrit 38.5 % (33.0-51.0); Hemoglobin 13.3 g/dL (11.5-16.0); IMMATURE GRAN ABSOLUTE AUTO 0.06 K/mm3 (0.00-0.10); IMMATURE GRAN PERCENT AUTO 0 % (0-1); LYMPHOCYTES ABSOLUTE AUTO 8.65 K/mm3 (0.84-5.20); LYMPHOCYTES PERCENT AUTO 53 % (21-46); MONOCYTES ABSOLUTE AUTO 0.11 K/mm3 (0.16-1.47); MONOCYTES PERCENT AUTO 1 % (4-13); Mean Corpuscular HGB Conc 34.5 g/dL (31.5-36.5); Mean Corpuscular Volume 94 fL (80-100); NEUTROPHILS ABSOLUTE AUTO 7.55 K/mm3 (1.96-9.15); NEUTROPHILS PERCENT AUTO 46 % (41-73); NRBC ABSOLUTE 0.00 K/mm3 (0.00-0.02); NRBC Auto 0.0 /100 WBC (0.0-0.2); Platelet Count 197 K/mm3 (150-400); RDW Coefficient Variation 12.5 % (11.7-14.2); RDW Standard Deviation 43.4 fL (35.1-46.3)
[2025-05-15] MEDS ORDERED: Methyl Salicylate/Menth/Camph 57 GM TUBE TOP ONE (08:10)
[2025-05-15 09:03] LABS: Anion Gap 10.0 mmol/L (3-11); Blood Urea Nitrogen 13.0 mg/dL (8-24); CO2, Blood 24.0 mmol/L (21-32); Calcium, Blood 8.5 mg/dL (8.5-10.1); Chloride, Blood 103.0 mmol/L (98-108); Creatinine, Blood 0.67 mg/dL (0.40-1.00); Glucose, Blood 132.0 mg/dL (70-99); Magnesium, Blood 2.3 mg/dL (1.6-2.4); Potassium, Blood 3.7 mmol/L (3.5-5.5); Sodium, Blood 133.0 mmol/L (136-145)
[2025-05-15] MEDS ORDERED: NS 500 ML IV SCH (09:50)
[2025-05-15] MEDS ORDERED: FLU VACC TS2025(65UP)/MF59C/PF 45 MCG/0.5 ML SYRINGE IM SCH (11:55)
[2025-05-15 13:19] LABS: CHOL/HDL RATIO 2.7; Cholesterol 217 mg/dL (50-200); HDL Cholesterol 79 mg/dL (>39); LDL/HDL RATIO 1.6; Low Density Lipoprotein Chol 129 mg/dL (0-110); Triglycerides 44 mg/dL (30-160); Very Low Density Lipoprot Chol 8 mg/dL (6-32)
[2025-05-15 14:38] VITALS: BP 124/64
[2025-05-15 15:46] VITALS: BP 118/59
--- NOTE | 2025-05-15 17:17 | NUR ---
SHIFT SUMMARY: PT A/O X4, ABLE TO MAKE NEEDS KNOWN. PT STRENGTH EQUAL BILATERALLY. PT ABLE TO AMBULATE INDEP AT HOME, REMAINS BEDREST WHILE DIZZY. PUREWICK CONNECTED TO SUCTION DUE TO URGENCY/FREQUENCY. PT REPORTS LAST BM WAS TODAY. PT ROOM AIR, SATS >95%. DENIES SOB. PT SINUS/SINUS KISHAN 50-60s. DENIES CHEST PAIN/PRESSURE.OTHER VSS. PT SITTING UP IN BED EATING DINNER, CALL WITHIN REACH.
[2025-05-15 19:51] VITALS: BP 113/72
[2025-05-15] MEDS ORDERED: Peg 400/Hypromellose/Glycerin 15 DROP/ML BTL BOTHEYES PRN (20:15)
[2025-05-15 23:43] VITALS: BP 116/58
[2025-05-16 03:25] VITALS: BP 120/74
[2025-05-16 04:24] LABS: BASOPHILS ABSOLUTE AUTO 0.03 K/mm3 (0.00-0.23); BASOPHILS PERCENT AUTO 0 % (0-2); EOSINOPHILS ABSOLUTE AUTO 0.01 K/mm3 (0.00-0.68); EOSINOPHILS PERCENT AUTO 0 % (0-6); Hematocrit 38.0 % (33.0-51.0); Hemoglobin 12.8 g/dL (11.5-16.0); Mean Corpuscular HGB Conc 33.7 g/dL (31.5-36.5); Mean Corpuscular Volume 97 fL (80-100); NRBC ABSOLUTE 0.00 K/mm3 (0.00-0.02); NRBC Auto 0.0 /100 WBC (0.0-0.2); Platelet Count 202 K/mm3 (150-400); RDW Coefficient Variation 12.9 % (11.7-14.2); RDW Standard Deviation 45.6 fL (35.1-46.3)
[2025-05-16 04:25] LABS: IMMATURE GRAN ABSOLUTE AUTO 0.06 K/mm3 (0.00-0.10); IMMATURE GRAN PERCENT AUTO 0 % (0-1); LYMPHOCYTES ABSOLUTE AUTO 8.62 K/mm3 (0.84-5.20); LYMPHOCYTES PERCENT AUTO 52 % (21-46); MONOCYTES ABSOLUTE AUTO 0.59 K/mm3 (0.16-1.47); MONOCYTES PERCENT AUTO 4 % (4-13); NEUTROPHILS ABSOLUTE AUTO 7.35 K/mm3 (1.96-9.15); NEUTROPHILS PERCENT AUTO 44 % (41-73)
--- NOTE | 2025-05-16 04:44 | NUR ---
SHIFT SUMMARY - PT REMAINED A/0X4, COOPERATIVE WITH CARE, DENIES PAIN. ON RA, SATS ABOVE 93%. ON CONTINUOUS CARDIAC TELEMETRY, SINUS KISHAN, HR IN 50'S. SBA TO BATHROOM. NO ACUTE EVENTS OVERNIGHT.
[2025-05-16 05:01] LABS: Alanine Aminotransfer (ALT/SGP 27.0 U/L (12-78); Albumin, Blood 3.3 g/dL (3.4-5.0); Albumin/Globulin Ratio 1.3 (0.8-1.8); Anion Gap 7.0 mmol/L (3-11); Aspartate Aminotrans (AST/SGOT 19.0 U/L (12-37); Bilirubin, Total 0.5 mg/dL (0.1-1.0); Blood Urea Nitrogen 23.0 mg/dL (8-24); CO2, Blood 26.0 mmol/L (21-32); Calcium, Blood 8.1 mg/dL (8.5-10.1); Chloride, Blood 106.0 mmol/L (98-108); Creatinine, Blood 0.82 mg/dL (0.40-1.00); Globulin, Blood 2.5 g/dL (2.2-4.0); Glucose, Blood 113.0 mg/dL (70-99); Potassium, Blood 3.9 mmol/L (3.5-5.5); Sodium, Blood 135.0 mmol/L (136-145); Total Protein, Blood 5.8 g/dL (6.4-8.2)
[2025-05-16 07:21] VITALS: BP 128/65
--- NOTE | 2025-05-16 07:39 | NUR ---
ASSUMPTION OF CARE: PATIENT IS A/O X 4 ABLE TO MAKE NEEDS KNOWN, DENIES CHEST PAIN PRESSURE OR SOB AT REST. CURRENTLY ON RA SP2>96%. VSS. AFEBRILE. ABLE TO MAKE NEEDS KNOWN, DENIES N/T DENIES N/V/D. NO ACUTE CONCERN PATIENT OVERALL IMPROVING.
[2025-05-16] MEDS ORDERED: Enoxaparin 30 MG/0.3 ML SYR SC SCH (09:00)
[2025-05-16] MEDS ORDERED: ATOR40TA PO (11:02)
[2025-05-16 11:13] VITALS: BP 125/70
--- NOTE | 2025-05-16 13:06 | NUR ---
DISCHARGE : PATIENT IN NO ACUTE DISTRESS. UNDERSTOOD ALL DISCHARGE INSTRUCTIONS, VSS AFEBRILE. WHEELED PATIENT VIA WC, TELE AND IV REMOVED. PATIENT PLEASANT COOPERATIVE. DENIES CHEST PAIN PRESSURE OR SOB AT REST. VERBALIZED UNDERSTANDING OF HER ADMISSION. NO ACUTE CONCERN FROM PATIENT OR THIS RN AT TIME OF DISCHARGE.
== END 2025-05-16 13:00 | disposition home or self-care (01) ==
LOC: ER 06:47 → PCU 12:27
PROVIDERS: Emergency Medicine; ADMIT Internal Medicine
DX: I21.4 Non-ST elevation (NSTEMI) myocardial infarction (principal); I11.9 Hypertensive heart disease without heart failure; K21.9 Gastro-esophageal reflux disease without esophagitis; I35.1 Nonrheumatic aortic (valve) insufficiency; I34.0 Nonrheumatic mitral (valve) insufficiency; I36.1 Nonrheumatic tricuspid (valve) insufficiency; I77.810 Thoracic aortic ectasia; C91.10 Chronic lymphocytic leukemia of B-cell type not having achieved remission; Z66 Do not resuscitate; Z91.041 Radiographic dye allergy status; Z88.2 Allergy status to sulfonamides; Z88.8 Allergy status to other drugs, medicaments and biological substances; Z79.899 Other long term (current) drug therapy
CPT/HCPCS: 36415; 71045; 80048; 80053; 80061; 83735; 83880; 84484; 85025; 93005; 93010; 93306; 94762; 96372; 99285-25; A6590; A9270; G0378; J1650; J7030